=== PATIENT | male | born 1990 | race Caucasian/White ===

== ENCOUNTER 2017-01-26 10:00 | Emergency (ER) | payer OTHER ==
[2017-01-26] MEDS ORDERED: CYCLOBENZAPRINE 10 MG TABLET PO STA (12:12)
[2017-01-26] MEDS ORDERED: KETOROLAC 60 MG/2 ML VIAL IM STA (12:12)
[2017-01-26] MEDS ORDERED: CYCLOBENZAPRINE 10 MG TABLET PO ONE (12:15)
[2017-01-26] MEDS ORDERED: KETOROLAC 60 MG/2 ML VIAL ONE (12:16)
== END 2017-01-26 12:25 | disposition home or self-care (01) ==
DX: M62.830 Muscle spasm of back (principal); R03.0 Elevated blood-pressure reading, without diagnosis of hypertension
CPT/HCPCS: 96372; 99283; A9270